=== PATIENT | male | born 1985 | race Two or more races ===

== ENCOUNTER 2023-11-27 01:16 | Emergency (ER) | payer OTHER ==
[~2023-11-27] VITALS: Ht 177.8 cm; Wt 77.3 kg
[~2023-11-27 01:16] MED LIST: HYDR-4527 PO; IBUP-1506 PO
[2023-11-27 01:47] VITALS: BP 138/64; PULSE 80; RESP 15; TEMP 98.8
[2023-11-27 02:02] LABS: BASOPHILS % (AUTO) 0.5 % (0.0-2.0); EOSINOPHILS % (AUTO) 1.3 % (1.0-6.0); LYMPHOCYTES # (AUTO) 2.5 K/uL (1.0-4.8); LYMPHOCYTES % (AUTO) 31.6 % (22.0-44.0); MEAN CORPUSCULAR HEMOGLOBIN 30.7 pg (26.0-34.0); MEAN CORPUSCULAR HGB CONC 34.2 G/dL (31.0-37.0); MEAN CORPUSCULAR VOLUME 90 fL (80-100); MONOCYTES # (AUTO) 0.7 K/uL (0.1-1.0); MONOCYTES % (AUTO) 8.4 % (2.0-9.0); NEUTROPHILS # (AUTO) 4.7 K/uL (1.8-7.7); NEUTROPHILS % (AUTO) 58.2 % (40.0-70.0); PLATELET COUNT (AUTO) 224 K/uL (150-450); WHITE BLOOD COUNT (AUTO) 8.1 K/uL (4.5-11.0)
[2023-11-27 02:12] LABS: ANION GAP 7 mmol/L (8-16); CALCIUM, TOTAL 8.8 mg/dL (8.8-10.5); CARBON DIOXIDE 31 mmol/L (22-29); CHLORIDE 101 mmol/L (98-107); CREATININE 0.95 mg/dL (0.60-1.30); GLOMERULAR FILTR. RATE CALC > 60 mL/min (>60); GLUCOSE,RANDOM 98 mg/dL (70-110); POTASSIUM 4.1 mmol/L (3.5-5.1); SODIUM SERUM 139 mmol/L (136-145); UREA NITROGEN, BLOOD 13 mg/dL (7-18)
[2023-11-27] MEDS ORDERED: ASPIRIN 81 MG CHEWABLE TABLET PO ONE (02:15)
[2023-11-27] MEDS ORDERED: NITROGLYCERIN 2% (1 GM=INCH) OINTMENT PACKET TP ONE (02:15)
[2023-11-27] MEDS ORDERED: ASPIRIN 325 MG TABLET PO ONE (02:15)
[2023-11-27 02:19] LABS: TROPONIN I-HIGH SENSITIVITY 10 ng/L (<76)
[2023-11-27 02:27] LABS: ALANINE AMINOTRANSFERASE 25 U/L (12-78); ALCOHOL, BLOOD (SERUM) < 3 mg/dL (0-10); ALKALINE PHOSPHATASE 115 U/L (46-116); ASPARTATE AMINOTRANSFERASE 18 U/L (15-37); BILIRUBIN,TOTAL 0.4 mg/dL (0.1-1.0); CREATINE KINASE, TOTAL ONLY 226 U/L (39-308)
[2023-11-27 02:28] LABS: B-TYPE NATRIURETIC PEPTIDE 5 pg/mL (0-100)
[2023-11-27] MEDS ORDERED: HEPARIN SODIUM 25000 UNITS/D5W 250 ML IV PRN (02:45)
[2023-11-27] MEDS ORDERED: HEPARIN SODIUM,PORCINE 5,000 UNITS/ML VIAL IVP PRN ×2 (03:00)
[2023-11-27 03:52] LABS: COVID AG,FIA SOURCE NASAL SWAB
[2023-11-27 04:08] LABS: SARS-COV2 (COVID) ANTIGEN,FIA Negative (Negative)
== END 2023-11-27 04:02 | disposition short-term general hospital (02) ==
LOC: EMS 01:17
DX: I21.3 ST elevation (STEMI) myocardial infarction of unspecified site (principal); F12.90 Cannabis use, unspecified, uncomplicated; Z98.890 Other specified postprocedural states; Z20.822 Contact with and (suspected) exposure to COVID-19
CPT/HCPCS: 99291; 87426; 80053; 82550; 83880; 84484; 85025; 36415; 71045; 93005; G0480